=== PATIENT | female | born 1960 | race Caucasian/White ===

== ENCOUNTER 2017-01-15 20:59 | Inpatient (IN) | payer BC ==
--- NOTE | ~2017-01-15 | OP ---
Record Of Operation [facility] [address] [place]. [address] NAME: KATHERYN JIANG : 60 STATUS : ADM IN [facility]#: [id number] AGE: 56 ADM/REG DATE : 01/15/17 MR#: [id number] REPORT SERV DATE: 01/18/17 DICTATED BY: NIEVES ELKINS DATE: 01/18/17 REPORT STATUS : Draft TRANSCRIBED BY: MODL DATE: 01/18/17 DATE OF PROCEDURE: PROCEDURE: Left thoracentesis. PREOPERATIVE DIAGNOSIS: Acute hypoxic respiratory failure. POSTOPERATIVE DIAGNOSIS: Acute hypoxic respiratory failure, left pleural effusion. PROCEDURE NOTE: The patient was sat upright, using nursing staff to hold her as she was quite short of breath, we used ultrasound guidance and marked the site of insertion. We then sterilized and draped her back on the left side. Using a standard thoracentesis kit, we were able to place lidocaine in between the ribs of the insertion site, slipped the thoracentesis kit catheter into the pleural space, we william out 1 L, had no air leak rather bleeding concerns. The patient did have some coughing toward the end. OUTCOME: Successful thoracentesis on the left side with 1 L fluid removal which was exudative by fistulization. HFQ/NANCY Nieves Elkins MD / [id number] CC: Socorro Ashraf M.D.
--- NOTE | ~2017-01-15 | DS ---
Discharge Summary [facility] [address] [place]. [address] NAME: KATHERYN JIANG : 60 STATUS : DIS IN PAT#: [id number] AGE: 56 ADM/REG DATE : 01/15/17 MR#: [id number] REPORT SERV DATE: 01/23/17 DICTATED BY: WILEY FELDER DATE: 01/23/17 REPORT STATUS : Draft TRANSCRIBED BY: MODL DATE: 01/23/17 ADMISSION DATE: 01/15/2017 DISCHARGE DATE: 01/22/2017 FINAL DIAGNOSES: 1. Acute hypoxic respiratory failure. 2. Chronic hypoxic respiratory failure, bilateral severe pleural effusions that were malignant in nature. 3. Bibasilar consolidations most likely cancer. 4. Urothelial cancer with significant metastatic disease. 5. Right IJ occlusion, on Eliquis with severe bleeding. 6. 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 7. Type 2 diabetes mellitus. 8. Hypothyroidism. 9. Hypertension. 10.Hyperlipidemia. 11.Obesity. 12.Concern for sleep apnea. 13.Significant anemia from vaginal bleeding. CONSULTANTS DURING THIS HOSPITALIZATION: 1. Nieves Elkins MD, of Pulmonology. 2. Tyler Marroquin MD, of Hematology-Oncology. BRIEF HISTORY OF PRESENT ILLNESS: The patient is a 56-year-old, white female, with diffuse lymphadenopathy concerning for possible pneumonia workup came in with respiratory failure when bilateral pleural effusion. So she was admitted. For detailed history and physical exam, please see note dictated by Dr. Enrique Gibbons on 01/15/2017. HOSPITAL COURSE: After being admitted to the hospital, this patient was cared for by multiple hospitalist physicians. I took over this patient's care on 01/18/2017. This patient already was in the Intermediate Care Unit. At that time, she had significant anasarca and severe respiratory distress. Dr. Nieves Elkins had already been seeing the patient. He had done bilateral thoracentesis in order to help with her hypoxic respiratory failure. Cytology from pleural effusions returned back as urothelial cancer, most likely of renal origin. This patient had significant metastatic disease and to a point where her lung parenchyma was being replaced by the spreading cancer. We could not maintain her respiratory status. She was placed on BiPAP in efforts to prevent further decline. At that time, family decided that patient should not be resuscitated and did not want to be on a ventilator. So we continued with BiPAP. After about 72 hours of efforts of trying to resuscitate, this patient continued to decline. Dr. Marroquin saw the patient during this time as well. They recommended chemotherapy. The patient did receive chemotherapy, I think, on 01/16/[address] Marroquin and that seemed to not help. This patient continued with further respiratory decline and patient was made comfort care. After patient being on comfort measures for 24 hours, patient yesterday around 1800 hours. Family was at bedside. The patient was in no distress during this time. Discharge Summary [address] [address] NAME: KATHERYN JIANG : 60 STATUS : DIS IN PAT#: [id number] AGE: 56 ADM/REG DATE : 01/15/17 MR#: [id number] REPORT SERV DATE: 01/23/17 DICTATED BY: WILEY FELDER DATE: 01/23/17 REPORT STATUS : Draft TRANSCRIBED BY: NANCY DATE: 01/23/17 SV/NANCY Wiley Felder M.D. / [id number] CC: Socorro Dos Santos M.D.
--- NOTE | ~2017-01-15 | OP ---
Record Of Operation [facility] [address] [place] [address] NAME: KATHERYN JIANG : 60 STATUS : ADM IN PAT#: [id number] AGE: 56 ADM/REG DATE : 01/15/17 MR#: [id number] REPORT SERV DATE: 01/18/17 DICTATED BY: NIEVES ELKINS DATE: 01/18/17 REPORT STATUS : Draft TRANSCRIBED BY: MODL DATE: 01/18/17 DATE OF PROCEDURE: 01/18/2017 PROCEDURE: Right thoracentesis. PREOPERATIVE DIAGNOSIS: Acute hypoxic respiratory failure with right pleural effusion. POSTOPERATIVE DIAGNOSIS: Acute hypoxic respiratory failure with right pleural effusion. PROCEDURE NOTE: The patient was set upright, using ultrasound guidance, we marked the insertion site, we then placed lidocaine in between the ribs, we then put a standard thoracentesis kit into the right thoracic cavity and had removal of exudative pleural effusion. We then william out 1.2 L, the patient did have coughing at the end, but respiratory status improved. We then removed the catheter. OUTCOME: Successful right thoracentesis with removal of 1.2 L of pleural fluid which was exudative by visualization. HFQ/NANCY Nieves Elkins MD / [id number] CC: Socorro Ashraf M.D.
--- NOTE | ~2017-01-15 | HP ---
History And Physical [place] [id number] [facility] [place]. [address] NAME: KATHERYN DUTTA : 60 STATUS : ADM IN PAT#: [id number] AGE: 56 ADM/REG DATE : 01/15/17 MR#: [id number] REPORT SERV DATE: 01/16/17 DICTATED BY: MEÑO MAYO DATE: 01/15/17 REPORT STATUS : Draft TRANSCRIBED BY: MODSj DATE: 01/15/17 DATE OF ADMISSION: 01/15/2017 ONCOLOGIST: Dr. Marroquin. CHIEF COMPLAINT: Shortness of breath and dyspnea on exertion. HISTORY OF PRESENT ILLNESS: Ms. Dutta is a 56-year-old female with a history of diffuse lymphadenopathy concerning for possible lymphoma; however, workup thus far has been unremarkable as well as a recent development of a right-sided pleural effusion status post thoracentesis, who presents to the emergency room today with persistent and worsening shortness of breath, primarily dyspnea on exertion. The patient was admitted to the Hospitalist Service, December of 2016, for a multitude of issues including a new diagnosis of right IJ occlusion with diffuse cervical lymphadenopathy concerning for possible malignancy. Prior to her transfer, she developed vaginal versus uterine hemorrhage while on anticoagulation requiring 2 units of packed red blood cell transfusion. While at [facility], she underwent deep cervical lymph node biopsy by Otolaryngology. Pathology results of which were unremarkable for malignancy. She underwent D and C and hysteroscopy for reported vaginal hemorrhage while on anticoagulation. She was restarted on her Eliquis for the right IJ occlusion and subsequently discharged to home. Other imaging findings were also known for a right renal mass with renal vein thrombosis for which Urology was consulted. The patient states that since her discharge, Dr. Marroquin, still suspects that she has lymphoma despite the negative lymph node biopsy. In fact, she has an appointment with Dr. Marroquin on the of this month tomorrow, to discuss further plans. The patient underwent a right-sided thoracentesis removing 1200 mL of fluid. The patient states that with the thoracentesis, she did not experience any subjective improvement in her shortness of breath. Review of the pleural fluid cytology shows malignant-appearing carcinoma cells of papillary features. The patient states she was discharged from our facility on 2-3 L by nasal cannula and has been on that since her discharge from the hospital. The patient states that since her thoracentesis, she has had progressive worsening shortness of breath, primarily dyspnea on exertion as well as worsening lower extremity edema. She denies any recent fevers, night sweats, chills, cough, sputum production, abdominal pain, nausea, vomiting, diarrhea, constipation, dysuria, melena, or hematochezia. She does report dyspnea on exertion as well as some orthopnea and lower extremity edema as well as some wheezing. REVIEW OF SYSTEMS: Comprehensive system otherwise negative unless listed in history of present illness. History And Physical [address] [address] NAME: KATHERYN DUTTA : 60 STATUS : ADM IN [facility]#: [id number] AGE: 56 ADM/REG DATE : 01/15/17 MR#: [id number] REPORT SERV DATE: 01/16/17 DICTATED BY: MEÑO MAYO DATE: 01/15/17 REPORT STATUS : Draft TRANSCRIBED BY: MODL DATE: 01/15/17 Initial evaluation in the emergency department notable for a white count of 20,400. Chest x ray is concerning for bilateral pleural effusions as well as bibasilar consolidation of evidence of intravascular volume overload, however, BNP was only 23. Remainder of labs otherwise unremarkable. She was subsequently admitted to the Hospitalist Service for further evaluation and management. PREVIOUS MEDICAL HISTORY: 1. Right IJ occlusion, on Eliquis. 2. Diffuse lymphadenopathy concerning for lymphoma. 3. 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 4. Insulin-dependent diabetes mellitus type 2. 5. Hypothyroidism. 6. Hypertension. 7. Hyperlipidemia. 8. Morbid obesity. 9. Concern for obstructive sleep apnea. 10.Chronic hypoxic respiratory failure. 11.History of vaginal bleeding, on anticoagulation. SURGICAL HISTORY: 1. Thyroidectomy. 2. D and C with hysteroscopy. 3. Lymph node biopsy. ALLERGIES: SULFA, GREEN TEA, AND CODEINE. HOME MEDICATIONS: 1. Eliquis 5 mg b.i.d. 2. Wellbutrin 150 mg daily. 3. Strawberry 10/325 1 tab t.i.d. p.r.n. 4. Insulin sliding scale. 5. Toujeo 60 units at bedtime. 6. Levothyroxine 125 mcg daily. 7. Tradjenta 5 mg daily. 8. Lisinopril 10 mg daily. 9. Loratadine 10 mg daily. 10.Ativan 0.5 mg b.i.d. p.r.n. 11.Metformin ER 500 mg daily. 12.Rosuvastatin 20 mg daily. 13.Valtrex 100 mg daily. SOCIAL HISTORY: She is a former smoker, quit about 15 months ago. Denies alcohol. Denies illicits. FAMILY MEDICAL HISTORY: Mother with history of congestive heart failure. Possible history of liver cancer. Father is , history is unknown. Siblings with anxiety. History And Physical [address] [address] NAME: KATHERYN DUTTA : 60 STATUS : ADM IN [facility]#: [id number] AGE: 56 ADM/REG DATE : 01/15/17 MR#: [id number] REPORT SERV DATE: 01/16/17 DICTATED BY: MEÑO MAYO DATE: 01/15/17 REPORT STATUS : Draft TRANSCRIBED BY: MODL DATE: 01/15/17 LABS AND IMAGIN. White count 20.4, hemoglobin 11.0, hematocrit 33.0, platelet count 204. INR is 1.7. 2. Sodium is 127, potassium 4.3, chloride 89, carbon dioxide 28, BUN 10, creatinine 0.70, glucose is 174, calcium is 8.6, magnesium is 1.9. 3. Troponin less than 0.02. BNP is 23. 4. Chest x-ray per Radiology report shows bilateral pleural effusions as well as bibasilar consolidation with CHF type pattern. 5. EKG per my review shows normal sinus rhythm with low-voltage QRS with no evidence of any acute ischemia or infarction. PHYSICAL EXAMINATION: VITAL SIGNS: Temperature is 97.6 degrees Fahrenheit, pulse is 105, respirations 18, saturating 95% on 2 L of cannula. Blood pressure 131/78. GENERAL: The patient is awake, alert, and in no acute distress. Resting comfortably. She is a well-developed, well-nourished, elderly female. Family is at bedside. HEENT: Atraumatic and normocephalic. Moist mucous membranes. Pupils are equal, round, and reactive to light and accommodation. Extraocular eye movements are intact. No scleral icterus. NECK: No jugular venous distention. No carotid bruits. CARDIAC: Tachycardic rate, regular rhythm. No murmurs, rubs, or gallops. Normal S1, normal S2. LUNGS: She is on oxygen, but in no respiratory distress. Speaking in full sentences. Does have decreased breath sounds in bilateral bases with some inspiratory rales in the bilateral bases. Otherwise, no wheezing, rhonchi, or crackles appreciated. ABDOMEN: Soft, nontender, and nondistended. Good bowel sounds. No rebound, guarding, or rigidity. EXTREMITIES: Warm and well perfused. No cyanosis or clubbing. She does have fairly profound 3 to 4+ pitting lower extremity edema. SKIN: Warm and dry. PSYCH: Affect appropriate. NEURO: Alert and oriented x3. Cranial nerves II through XII grossly intact. Speech is normal. Gait is not assessed. ASSESSMENT AND PLAN: Ms. Dutta is a 56-year-old female with history of diffuse lymphadenopathy with concern for possible lymphoma as well as a status post recent thoracentesis, for which pathology is concerning for malignancy, who presents to emergency room today with worsening shortness of breath, dyspnea on exertion, and found to have evidence of bilateral pleural effusions as well as concern for possible volume overload and bibasilar consolidation. PROBLEM LIST: 1. Shortness of breath and dyspnea on exertion. 2. Chronic hypoxic respiratory failure. 3. Bilateral pleural effusions. 4. Bibasilar consolidation concerning for possible pneumonia. 5. Volume overload. 6. Leukocytosis. 7. Hypochloremic hyponatremia. History And Physical [address] [address] NAME: KATHERYN DUTTA : 60 STATUS : ADM IN [facility]#: [id number] AGE: 56 ADM/REG DATE : 01/15/17 MR#: [id number] REPORT SERV DATE: 01/16/17 DICTATED BY: MEÑO MAYO DATE: 01/15/17 REPORT STATUS : Draft TRANSCRIBED BY: MODL DATE: 01/15/17 8. History of diffuse lymphadenopathy concerning for lymphoma. PLAN: 1. Shortness of breath and dyspnea on exertion. This is likely multifactorial in etiology from the patient's volume overload pattern as well as bilateral pleural effusions and possible bibasilar consolidation concerning for pneumonia. We will trial some diuretics, antibiotics, pulmonary toilet, and obtain a CT of the chest to evaluate the size of pleural effusions to see if she would benefit from repeat thoracentesis. 2. Volume overload. The patient has an echocardiogram from a few weeks ago that does show some mild diastolic dysfunction with preserved ejection fraction. BNP is within normal limits, but does have profound lower extremity lymphedema as well as a CHF type pattern on chest x-ray. We will trial some IV Lasix for diuresis. 3. Bilateral pleural effusions. Follow up CT scan of the chest to determine size to see if she would benefit from repeat thoracentesis. 4. Bibasilar consolidation, worsening for possible pneumonia. We will empirically place the patient on IV antibiotics until CT scan can be obtained. Obtain blood culture as well as procalcitonin, and sputum culture should be obtained. 5. Leukocytosis. The patient has a worsening white count, but does have persistent white count elevation from her labs for the past month, also fitting with possible lymphoma diagnosis. We will check blood cultures, procalcitonin level, urinalysis, as well as empiric placed on antibiotics for concern for pneumonia. 6. Hypochloremic hyponatremia. This is likely secondary to volume overload. Checking thyroid function studies, serum osmolality, hepatic function studies, as well as urine lytes. Again, trial of IV Lasix diuresis. 7. History of right IJ occlusion, on Eliquis. We will continue patient's anticoagulation as she denies any recent troubles with bleeding. 8. DVT prophylaxis. She is on Eliquis. CODE STATUS: The patient wishes to be full code. JCB/MODL Meño Mayo MD / [id number] CC: Socorro Lopez M.D. Benjamin R Nadeau, MD
--- NOTE | ~2017-01-15 | CN ---
Consultation Report [facility] [address] [place]. [address] NAME: KATHERYN DUTTA : 60 STATUS : ADM IN PAT#: [id number] AGE: 56 ADM/REG DATE : 01/15/17 MR#: [id number] REPORT SERV DATE: 01/18/17 DICTATED BY: NIEVES ELKINS DATE: 01/18/17 REPORT STATUS : Draft TRANSCRIBED BY: MODL DATE: 01/18/17 PULMONARY CRITICAL CARE CONSULT DATE OF CONSULTATION: 01/17/2017 REASON FOR CONSULTATION: Pulmonary Critical Care consult for acute respiratory failure secondary to bilateral pleural effusions. CHIEF COMPLAINT: Shortness of breath. HISTORY OF PRESENT ILLNESS: Ms. 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 This is thought to originate from the renal pelvis. She has multiple pulmonary nodules and bilateral effusions. She has just been started on chemotherapy. CT scan was done on 12/26/2016, which showed adenopathy in the thoracic and abdominal areas, right kidney mass with renal vein thrombosis, bilateral effusions, and pulmonary nodules. The patient was admitted on 01/16/2017 with shortness of breath. It was noted that she had bilateral effusions. She is already status post right thoracentesis which helped. She underwent chemotherapy, but has progressively become more and more short of breath. Arterial blood gas showed that she was able to remove CO2 for the most part, and her main complaint is work of breathing. She is on a non-rebreather with an oxygen saturation of 100% currently. Upon speaking to the and family at the bedside, it was felt that the patient needed bilateral thoracentesis in hopes that this will stop her from progressing in her respiratory failure and need for mechanical ventilation. The patient is currently on anticoagulation due to right IJ occlusion, renal vein thrombosis. 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 HOME MEDICATIONS: Home medication list reviewed, the patient is on Eliquis, antihypertension medications, diabetes medications. ALLERGIES: SULFA, CODEINE. SOCIAL HISTORY: The patient is a former smoker, she is currently with her at the bedside, no alcohol. FAMILY HISTORY: Other family members with congestive heart failure and liver cancer. REVIEW OF SYSTEMS: All pertinent review of systems is reviewed and is otherwise negative. PHYSICAL EXAMINATION: Consultation Report [address] [place]. [address] NAME: KATHERYN DUTTA : 60 STATUS : ADM IN PAT#: [id number] AGE: 56 ADM/REG DATE : 01/15/17 MR#: [id number] REPORT SERV DATE: 01/18/17 DICTATED BY: NIEVES ELKINS DATE: 01/18/17 REPORT STATUS : Draft TRANSCRIBED BY: MODSj DATE: 01/18/17 VITAL SIGNS: Currently afebrile, heart rate in the 90s, respiratory rate 25, oxygen saturation 100% on a non-rebreather, and blood pressure currently around 100 systolic. HEENT: Neck is supple, no lymphadenopathy. PULMONARY: Decreased breath sounds bilaterally, mostly in the posterior lung ross. Mild crackles. CARDIAC: No murmurs, regular rate. ABDOMEN: Soft, nontender, nondistended. EXTREMITIES: Lower extremity is edematous, peripheral pulses noted. LABORATORY EXAMINATION: Leukocytosis, mild anemia, INR 1.4, last PTT 56, good kidney function. IMAGING: CT scan done January 16 shows multiple areas of pulmonary nodules, bilateral effusions, mediastinal lymphadenopathy. ASSESSMENT AND PLAN: Ms. Dutta is a 56-year-old female with a medical history noted above. 1. Acute respiratory failure with hypoxia and increased work of breathing: At this moment in time, we will drain both chests for relief of atelectasis and in hopes that she will not need to be intubated. Continue oxygen therapy. 2. Metastatic renal cancer of papillary carcinoma. Currently Oncology is on board, the patient is getting chemotherapy. She is getting gemcitabine, Decadron, and carboplatin. Thank you very much for this consultation, we will continue to follow along with you with the Pulmonary consult service. HFQ/MODL Nieves Elkins MD / [id number] CC: Socorro Ashraf M.D.
[2017-01-15 16:35] LABS: BASOPHILS 0.2 %; BASOPHILS ABSOLUTE 0.04 10/3/uL (0.0-0.16); EOSINOPHILS 0 %; ER CBC TAT 0 Hrs 10 Mins; IMMATURE GRANULOCYTES 0.4 %; IMMATURE GRANULOCYTES ABSOLUTE 0.09 10/3/uL (0.0-0.11); LYMPHOCYTES 10.3 %; LYMPHOCYTES ABSOLUTE 2.11 10/3/uL (0.67-4.30); MEAN CORPUS HGB CONC 33.3 g/dL (32.0-36.0); MEAN CORPUSCULAR HEMOGLOB 27.2 pg (26.0-34.0); MONOCYTES 4.3 %; MONOCYTES ABSOLUTE 0.87 10/3/uL (0.21-1.20); NEUTROPHILS 84.8 %; NEUTROPHILS ABSOLUTE 17.32 10/3/uL (2.02-8.40); PLATELET COUNT 204 10/3/uL (150-400); RBC DISTRIBUTION WIDTH 15.4 % (12.0-16.0); RED CELL COUNT 4.05 10/6/uL (4.0-5.6); WHITE BLOOD CELLS 20.4 10/3/uL (4.5-10.5)
[2017-01-15 16:37] LABS: INTERNATIONAL NORMAL RATI 1.7 UNITS (-); MANUAL DIFF NO %; MEAN CORPUSCULAR VOLUME 81.5 fL (80-100); PARTIAL THROMBO TIME 31.5 SEC (22.5-37.2)
[2017-01-15 16:38] LABS: PROTIME (NOT ORD) 19.6 SEC (12.0-14.5)
[2017-01-15 16:46] LABS: BAND NEUTROPHILS 8 %; BASOPHILS 1 %; EOSINOPHILS 4 %; EOSINOPHILS ABSOLUTE (CALC) 0.82 10/3/uL (0.0-0.53); ER DIFF TAT 0 Hrs 21 Mins; LYMPHOCYTES 10 %; LYMPHOCYTES ABSOLUTE (CALC) 2.04 10/3/uL (0.67-4.30); MONOCYTES 7 %; MONOCYTES ABSOLUTE (CALC) 1.43 10/3/uL (0.21-1.20); NEUTROPHILS ABSOLUTE (CALC) 15.91 10/3/uL (2.02-8.40); SEGMENTED NEUTROPHIL (0) 70 %; TOTAL NUCLEATED CELLS 100
[2017-01-15 16:46] LABS: BUN (BLOOD UREA NITROGEN) 10 MG/DL (6-23); CALCIUM, SERUM 8.6 MG/DL (8.5-10.4); CHEST PAIN PROFILE TAT 0 Hrs 00 Mins; CHLORIDE, SERUM 89 MMOL/L (96-112); CO2 (CARBON DIOXIDE) 28 MMOL/L (24-34); GFR AFRICAN AMERICAN 112 ML/MIN (>=60); GFR NON AFRICAN AMERICAN 97 ML/MIN (>=60); GLUCOSE, SERUM 174 MG/DL (60-99); POTASSIUM, SERUM 4.3 MMOL/L (3.5-5.3); SODIUM, SERUM 127 MMOL/L (135-148); TROPONIN I <0.02 NG/ML (<0.05)
[2017-01-15 16:47] LABS: PLATELET ESTIMATE ADQ (ADEQUATE); RBC MORPHOLOGY NORM (NORMAL)
[~2017-01-15 20:59] MED LIST: ALEVE220 MG PO; ALLEGRA180 PO; ASA5GR PO; ATV.5 PO; BUPROBAN150 MG PO; BUPROPION PO; CLARIT10 PO; CRESTOR PO; CRESTOR20 MG PO; DSS PO; ELIQUIS 5 MG TAB5 MG PO; EPIPEN0.3 IM; GLUCOV2.5 PO; GLUCPH PO; KDUR20 PO; L20 PO; LEVOTHYROXIN125 MCG PO; LORTAB 5 PO; LOVENOX; NORCO1 TAB PO; NOVOPEN SC; NOVOPENMIX SC; NYSTATIN-TRIAMC15 GM TOP; PREV15 PO; PRIN10 PO; SYN125 PO; TOUJEO SC; TOUJEO SQ; TRADJENTA5 MG PO; VALTREX5 PO; WELLSR150 PO; WELLXL150 PO; ZOCOR10 PO
[2017-01-15] MEDS ORDERED: WELLXL150 PO (21:35)
[2017-01-15] MEDS ORDERED: CRESTOR20 MG PO (21:35)
[2017-01-15] MEDS ORDERED: CLARIT10 PO (21:35)
[2017-01-15] MEDS ORDERED: TRADJENTA5 MG PO (21:36)
[2017-01-15] MEDS ORDERED: LEVOTHROID125 MCG PO (21:36)
[2017-01-15] MEDS ORDERED: FORTAMET500 MG PO (21:36)
[2017-01-15] MEDS ORDERED: VALTREX5 PO (21:36)
[2017-01-15] MEDS ORDERED: NOVOPEN SC (21:37)
[2017-01-15] MEDS ORDERED: ATV.5 PO (21:37)
[2017-01-15] MEDS ORDERED: ELIQUIS 5 MG TAB5 MG PO (21:37)
[2017-01-15] MEDS ORDERED: PRIN10 PO (21:37)
[2017-01-15] MEDS ORDERED: NORCO1 TAB PO (21:38)
[2017-01-15] MEDS ORDERED: TOUJEO SC (21:38)
[2017-01-15 23:01] LABS: PROCALCITONIN 0.11 ng/mL (<0.5)
[2017-01-16 05:41] LABS: BASOPHILS 0.2 %; BASOPHILS ABSOLUTE 0.04 10/3/uL (0.0-0.16); EOSINOPHILS 6.2 %; HEMATOCRIT 31.3 % (36.0-48.0); HEMOGLOBIN 10.3 g/dL (12.0-16.0); IMMATURE GRANULOCYTES 0.7 %; IMMATURE GRANULOCYTES ABSOLUTE 0.13 10/3/uL (0.0-0.11); LYMPHOCYTES 4.6 %; LYMPHOCYTES ABSOLUTE 0.89 10/3/uL (0.67-4.30); MEAN CORPUS HGB CONC 32.9 g/dL (32.0-36.0); MEAN CORPUSCULAR HEMOGLOB 27.5 pg (26.0-34.0); MEAN CORPUSCULAR VOLUME 83.5 fL (80-100); MEAN PLATELET VOLUME 9.6 fL (9.2-13.0); MONOCYTES 10.5 %; MONOCYTES ABSOLUTE 2.03 10/3/uL (0.21-1.20); NEUTROPHILS 77.8 %; NEUTROPHILS ABSOLUTE 14.97 10/3/uL (2.02-8.40); PLATELET COUNT 172 10/3/uL (150-400); RBC DISTRIBUTION WIDTH 15.4 % (12.0-16.0); RED CELL COUNT 3.75 10/6/uL (4.0-5.6); WHITE BLOOD CELLS 19.3 10/3/uL (4.5-10.5)
[2017-01-16 05:42] LABS: MANUAL DIFF NO %
[2017-01-16 06:03] LABS: ALBUMIN 2.3 G/DL (3.5-5.0); ALKALINE PHOSPHATASE 94 U/L (45-117); BUN (BLOOD UREA NITROGEN) 11 MG/DL (6-23); CALCIUM, SERUM 8.4 MG/DL (8.5-10.4); CHLORIDE, SERUM 88 MMOL/L (96-112); CO2 (CARBON DIOXIDE) 26 MMOL/L (24-34); CREATININE 0.81 MG/DL (0.55-1.02); GFR AFRICAN AMERICAN 94 ML/MIN (>=60); GFR NON AFRICAN AMERICAN 81 ML/MIN (>=60); POTASSIUM, SERUM 4.2 MMOL/L (3.5-5.3); SGOT(AST) 13 U/L (5-40); SGPT(ALT) 16 U/L (5-65); SODIUM, SERUM 125 MMOL/L (135-148); TOTAL BILIRUBIN 0.4 MG/DL (0-1.2); TOTAL PROTEIN 6.5 G/DL (6.0-8.5)
[2017-01-16 06:04] LABS: DIRECT BILIRUBIN < 0.1 MG/DL (0.0-0.4); GLUCOSE, SERUM 209 MG/DL (60-99); INDIRECT BILIRUBIN(NOT ORDER) 0.3 MG/DL (0.1-0.9)
[2017-01-16 06:42] LABS: PROCALCITONIN 0.14 ng/mL (<0.5)
[2017-01-16 06:48] LABS: ALLENS TEST Pos; BE (BASE EXCESS) 1.8 MEQ/L (0 +/- 2.5); CARBOXYHEMOGLOBIN 0.9 % (0-3); DEVICE NC; HCO3 (ACTUAL BICARBONATE) 25.7 MEQ/L (23-27); HEMOBLOGIN CONTENT 11.5 G/DL (12-16); INSTRUMENT SERIAL # 8083; METHEMOGLOBIN 0.2 % (0-3); OPERATOR ID 32193; PCO2 (CO2 TENSION) 38 MMHG (35-45); PO2 (O2 TENSION) 69 MMHG (79-93); SAMPLE Arterial; pH 7.45 (7.37-7.43)
[2017-01-16 15:29] LABS: INTERNATIONAL NORMAL RATI 1.6 UNITS (-); PARTIAL THROMBO TIME 29.5 SEC (22.5-37.2); PROTIME (NOT ORD) 19.2 SEC (12.0-14.5)
[2017-01-17 00:05] LABS: INTERNATIONAL NORMAL RATI 1.4 UNITS (-); PROTIME (NOT ORD) 17.4 SEC (12.0-14.5)
[2017-01-17 00:06] LABS: PARTIAL THROMBO TIME 71.3 SEC (22.5-37.2)
[2017-01-17 05:20] LABS: BUN (BLOOD UREA NITROGEN) 12 MG/DL (6-23); CALCIUM, SERUM 7.9 MG/DL (8.5-10.4); CHLORIDE, SERUM 86 MMOL/L (96-112); CO2 (CARBON DIOXIDE) 28 MMOL/L (24-34); CREATININE 0.84 MG/DL (0.55-1.02); GFR AFRICAN AMERICAN 90 ML/MIN (>=60); GFR NON AFRICAN AMERICAN 78 ML/MIN (>=60); GLUCOSE, SERUM 187 MG/DL (60-99); POTASSIUM, SERUM 3.8 MMOL/L (3.5-5.3); SODIUM, SERUM 126 MMOL/L (135-148)
[2017-01-17 20:25] LABS: ALLENS TEST Pos; BE (BASE EXCESS) 2.5 MEQ/L (0 +/- 2.5); CARBOXYHEMOGLOBIN 0.8 % (0-3); DEVICE NRB; HEMOBLOGIN CONTENT 11.5 G/DL (12-16); INSTRUMENT SERIAL # 8083; METHEMOGLOBIN 0.2 % (0-3); O2 CONTENT 15.9 VOL% (18-24); OPERATOR ID 23712; PCO2 (CO2 TENSION) 48 MMHG (35-45); PO2 (O2 TENSION) 107 MMHG (79-93); SAMPLE Arterial; pH 7.39 (7.37-7.43)
[2017-01-18 03:00] LABS: HEMATOCRIT 29.4 % (36.0-48.0); MEAN CORPUSCULAR HEMOGLOB 27.9 pg (26.0-34.0); MEAN CORPUSCULAR VOLUME 82.1 fL (80-100); MEAN PLATELET VOLUME 10.2 fL (9.2-13.0); PLATELET COUNT 186 10/3/uL (150-400); RBC DISTRIBUTION WIDTH 15.4 % (12.0-16.0); RED CELL COUNT 3.58 10/6/uL (4.0-5.6); WHITE BLOOD CELLS 17.3 10/3/uL (4.5-10.5)
[2017-01-18 03:01] LABS: MANUAL DIFF YES %
[2017-01-18 03:16] LABS: A/G RATIO 0.5 (0.7-1.9); ALKALINE PHOSPHATASE 83 U/L (45-117); BUN (BLOOD UREA NITROGEN) 13 MG/DL (6-23); CALCIUM, SERUM 7.1 MG/DL (8.5-10.4); CHLORIDE, SERUM 87 MMOL/L (96-112); CO2 (CARBON DIOXIDE) 27 MMOL/L (24-34); CREATININE 0.77 MG/DL (0.55-1.02); GFR AFRICAN AMERICAN 100 ML/MIN (>=60); GFR NON AFRICAN AMERICAN 86 ML/MIN (>=60); GLOBULIN 4.2 G/DL (2.5-4.1); GLUCOSE, SERUM 221 MG/DL (60-99); POTASSIUM, SERUM 3.9 MMOL/L (3.5-5.3); SGOT(AST) 17 U/L (5-40); SGPT(ALT) 15 U/L (5-65); SODIUM, SERUM 127 MMOL/L (135-148); TOTAL BILIRUBIN 0.3 MG/DL (0-1.2); TOTAL PROTEIN 6.2 G/DL (6.0-8.5)
[2017-01-18 03:28] LABS: EOSINOPHILS 1 %; EOSINOPHILS ABSOLUTE (CALC) 0.17 10/3/uL (0.0-0.53); LYMPHOCYTES 3 %; LYMPHOCYTES ABSOLUTE (CALC) 0.52 10/3/uL (0.67-4.30); MONOCYTES 2 %; MONOCYTES ABSOLUTE (CALC) 0.35 10/3/uL (0.21-1.20); NEUTROPHILS ABSOLUTE (CALC) 16.26 10/3/uL (2.02-8.40); SEGMENTED NEUTROPHIL (0) 94 %; TOTAL NUCLEATED CELLS 100
[2017-01-18 03:29] LABS: RBC MORPHOLOGY NORM (NORMAL)
[2017-01-18 17:34] LABS: BUN (BLOOD UREA NITROGEN) 17 MG/DL (6-23); CALCIUM, SERUM 7.4 MG/DL (8.5-10.4); CHLORIDE, SERUM 88 MMOL/L (96-112); CO2 (CARBON DIOXIDE) 27 MMOL/L (24-34); CREATININE 1.09 MG/DL (0.55-1.02); GFR AFRICAN AMERICAN 66 ML/MIN (>=60); GFR NON AFRICAN AMERICAN 57 ML/MIN (>=60); GLUCOSE, SERUM 159 MG/DL (60-99); POTASSIUM, SERUM 3.6 MMOL/L (3.5-5.3); SODIUM, SERUM 127 MMOL/L (135-148)
[2017-01-19 05:07] LABS: A/G RATIO 0.7 (0.7-1.9); ALKALINE PHOSPHATASE 78 U/L (45-117); BUN (BLOOD UREA NITROGEN) 18 MG/DL (6-23); CALCIUM, SERUM 7.3 MG/DL (8.5-10.4); CHLORIDE, SERUM 89 MMOL/L (96-112); CO2 (CARBON DIOXIDE) 30 MMOL/L (24-34); CREATININE 1.19 MG/DL (0.55-1.02); GFR AFRICAN AMERICAN 59 ML/MIN (>=60); GFR NON AFRICAN AMERICAN 51 ML/MIN (>=60); GLOBULIN 3.8 G/DL (2.5-4.1); GLUCOSE, SERUM 133 MG/DL (60-99); POTASSIUM, SERUM 3.2 MMOL/L (3.5-5.3); SGOT(AST) 47 U/L (5-40); SGPT(ALT) 27 U/L (5-65); SODIUM, SERUM 129 MMOL/L (135-148); TOTAL BILIRUBIN 0.4 MG/DL (0-1.2); TOTAL PROTEIN 6.5 G/DL (6.0-8.5)
[2017-01-19 05:08] LABS: ALBUMIN 2.7 G/DL (3.5-5.0)
[2017-01-19 05:25] LABS: HEMATOCRIT 28.6 % (36.0-48.0); HEMOGLOBIN 9.3 g/dL (12.0-16.0); MANUAL DIFF YES %; MEAN CORPUS HGB CONC 32.5 g/dL (32.0-36.0); MEAN CORPUSCULAR HEMOGLOB 27.2 pg (26.0-34.0); MEAN CORPUSCULAR VOLUME 83.6 fL (80-100); MEAN PLATELET VOLUME 10.3 fL (9.2-13.0); PLATELET COUNT 203 10/3/uL (150-400); RBC DISTRIBUTION WIDTH 15.6 % (12.0-16.0); RED CELL COUNT 3.42 10/6/uL (4.0-5.6)
[2017-01-19 06:48] LABS: BAND NEUTROPHILS 20 %; BASOPHILS 1 %; EOSINOPHILS 2 %; LYMPHOCYTES 2 %; MONOCYTES 1 %; PLATELET ESTIMATE ADQ (ADEQUATE); SEGMENTED NEUTROPHIL (0) 74 %; TOTAL NUCLEATED CELLS 100; TOXIC GRANULATION 1+; VACUOLATED NEUTROPHILES FEW
[2017-01-19 06:49] LABS: RBC MORPHOLOGY NORM (NORMAL)
[2017-01-20 04:43] LABS: BUN (BLOOD UREA NITROGEN) 15 MG/DL (6-23); CALCIUM, SERUM 7.5 MG/DL (8.5-10.4); CHLORIDE, SERUM 92 MMOL/L (96-112); CO2 (CARBON DIOXIDE) 31 MMOL/L (24-34); GFR AFRICAN AMERICAN 59 ML/MIN (>=60); GFR NON AFRICAN AMERICAN 50 ML/MIN (>=60); PHOSPHORUS, SERUM 2.8 MG/DL (2.5-4.5); POTASSIUM, SERUM 3.5 MMOL/L (3.5-5.3); SODIUM, SERUM 134 MMOL/L (135-148)
[2017-01-20 04:44] LABS: ALBUMIN 3.6 G/DL (3.5-5.0); GLUCOSE, SERUM 214 MG/DL (60-99)
[2017-01-20 04:53] LABS: HEMATOCRIT 25.8 % (36.0-48.0); HEMOGLOBIN 8.3 g/dL (12.0-16.0); MEAN CORPUS HGB CONC 32.2 g/dL (32.0-36.0); MEAN CORPUSCULAR HEMOGLOB 27.4 pg (26.0-34.0); MEAN CORPUSCULAR VOLUME 85.1 fL (80-100); MEAN PLATELET VOLUME 9.8 fL (9.2-13.0); PLATELET COUNT 171 10/3/uL (150-400); RBC DISTRIBUTION WIDTH 15.9 % (12.0-16.0); RED CELL COUNT 3.03 10/6/uL (4.0-5.6); WHITE BLOOD CELLS 17.4 10/3/uL (4.5-10.5)
[2017-01-20 04:56] LABS: MANUAL DIFF YES %
[2017-01-20 06:01] LABS: BAND NEUTROPHILS 28 %; EOSINOPHILS 5 %; EOSINOPHILS ABSOLUTE (CALC) 0.87 10/3/uL (0.0-0.53); LYMPHOCYTES 3 %; LYMPHOCYTES ABSOLUTE (CALC) 0.52 10/3/uL (0.67-4.30); MONOCYTES 2 %; MONOCYTES ABSOLUTE (CALC) 0.35 10/3/uL (0.21-1.20); NEUTROPHILS ABSOLUTE (CALC) 15.66 10/3/uL (2.02-8.40); SEGMENTED NEUTROPHIL (0) 62 %; TOTAL NUCLEATED CELLS 100
[2017-01-20 06:02] LABS: PLATELET ESTIMATE ADQ (ADEQUATE); POLYCHROMASIA 1+ (2-5/OIF) (0-1/OIF); TOXIC GRANULATION 1+; VACUOLATED NEUTROPHILES OCC
[2017-01-20 06:03] LABS: HELMET CELLS OCC (0-2/OIF); TEARDROP SHAPED RBCS OCC (0-2/OIF)
[2017-01-20 08:07] LABS: BE (BASE EXCESS) 5.5 MEQ/L (0 +/- 2.5); BIPAP 15/5 cm.H2O; CARBOXYHEMOGLOBIN 1.1 % (0-3); HCO3 (ACTUAL BICARBONATE) 29.4 MEQ/L (23-27); HEMOBLOGIN CONTENT 9.2 G/DL (12-16); INSTRUMENT SERIAL # 8083; METHEMOGLOBIN 0.3 % (0-3); O2 CONTENT 12.4 VOL% (18-24); OPERATOR ID 18642; PCO2 (CO2 TENSION) 40 MMHG (35-45); PO2 (O2 TENSION) 78 MMHG (79-93); SAMPLE Arterial; pH 7.48 (7.37-7.43)
== END 2017-01-22 17:51 | disposition expired | DRG 686 ==
LOC: ER 20:59 → 4SO 22:25 → 4EA 01-16 22:50 → IMCU 01-17 22:30
PROVIDERS: Emergency Medicine; Internal Medicine; Internal Medicine Hematology & Oncology
PROC: 02HV33Z Insertion of Infusion Device into Superior Vena Cava, Percutaneous Approach (ICD-10-PCS; principal; 2017-01-17)
PROC: 4A02X4A Measurement of Cardiac Electrical Activity, Guidance, External Approach (ICD-10-PCS; 2017-01-17)
PROC: 3E03305 Introduction of Other Antineoplastic into Peripheral Vein, Percutaneous Approach (ICD-10-PCS; 2017-01-17)
PROC: 0W9B30Z Drainage of Left Pleural Cavity with Drainage Device, Percutaneous Approach (ICD-10-PCS; 2017-01-17)
PROC: 0W9930Z Drainage of Right Pleural Cavity with Drainage Device, Percutaneous Approach (ICD-10-PCS; 2017-01-17)
DX: C65.9 Malignant neoplasm of unspecified renal pelvis (principal); J96.21 Acute and chronic respiratory failure with hypoxia; J91.0 Malignant pleural effusion; I82.3 Embolism and thrombosis of renal vein; C78.00 Secondary malignant neoplasm of unspecified lung; E87.1 Hypo-osmolality and hyponatremia; I82.C21 Chronic embolism and thrombosis of right internal jugular vein; E87.70 Fluid overload, unspecified; E03.9 Hypothyroidism, unspecified; E11.9 Type 2 diabetes mellitus without complications; Z51.5 Encounter for palliative care; Z66 Do not resuscitate; E78.5 Hyperlipidemia, unspecified; E66.9 Obesity, unspecified; Z68.36 Body mass index [BMI] 36.0-36.9, adult
CPT/HCPCS: 36569; 36600; 71010; 71020; 71250; 80048; 80053; 80069; 80076; 80202; 82330; 82803; 82805; 82945; 82947; 82962; 83615; 83735; 83880; 83930; 84132; 84145; 84157; 84295; 84484; 85014; 85025; 85610; 85730; 87040; 87070; 87102; 87205; 88112; 88305; 90686; 93005; 93970; 94640; 94660; 96374; 99291; A9270-GY; C1751; G0008; J1940; J1956; J2405; J2543; J3370; J9045; J9201; P9047